=== PATIENT | female | born 1960 | race Caucasian/White ===

== ENCOUNTER 2018-01-10 12:56 | Emergency (ER) | payer BC, OTHER ==
[2018-01-10] MEDS ORDERED: Hydromorphone 1 mg/ml Ampule IM ONE (13:44)
[2018-01-10] MEDS ORDERED: Phenergan 25 MG INJ IM ONE (13:45)
[2018-01-10] MEDS ORDERED: DECADRON 10MG INJ. IM ONE (13:48)
[2018-01-10] MEDS ORDERED: MORPHINE SULFATE 4 MG INJ ONE (13:52)
[2018-01-10] MEDS ORDERED: MORPHINE SULFATE 4 MG INJ IM ONE (13:52)
[2018-01-10] MEDS ORDERED: DECADRON 10MG INJ. ONE (13:52)
[2018-01-10] MEDS ORDERED: Phenergan 25 MG INJ ONE (13:52)
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
[2018-01-10 14:40] VITALS: BP 149/94; PULSE 73
[2018-01-10 14:41] VITALS: O2SAT 96
== END 2018-01-10 14:40 | disposition home or self-care (01) ==
LOC: ED 12:56
DX: M54.2 Cervicalgia (principal); G89.29 Other chronic pain
CPT/HCPCS: 96372; 99284; J1100; J2270; J2550; L0120

== ENCOUNTER 2018-01-12 17:29 | Emergency (ER) | payer OTHER ==
[2018-01-12] MEDS ORDERED: Hydromorphone 1 mg/ml Ampule IV ONE (18:16)
[2018-01-12] MEDS ORDERED: Phenergan 25 MG INJ IM ONE (18:16)
[2018-01-12] MEDS ORDERED: Phenergan 25 MG INJ ONE (18:28)
[2018-01-12] MEDS ORDERED: DILAUDID 2 MG INJECTION ONE (18:29)
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
[2018-01-12 19:09] VITALS: O2SAT 97
[2018-01-12] MEDS ORDERED: Decadron 4 MG INJ IV ONE (19:14)
[2018-01-12] MEDS ORDERED: Decadron 4 MG INJ ONE (19:17)
[2018-01-12 20:07] VITALS: BP 132/70; PULSE 65
== END 2018-01-12 20:15 | disposition home or self-care (01) ==
LOC: ED 17:29
DX: M54.12 Radiculopathy, cervical region (principal); M54.2 Cervicalgia; M62.838 Other muscle spasm; M19.90 Unspecified osteoarthritis, unspecified site; F41.8 Other specified anxiety disorders; F17.200 Nicotine dependence, unspecified, uncomplicated
CPT/HCPCS: 36000; 96372; 96374; 96375; 99284; J1100; J1170; J2550

== ENCOUNTER 2022-04-16 09:59 | Day surgery (SDC) | payer MEDICARE ==
[2022-04-16] MEDS ORDERED: Sodium Chloride 0.9(Preservative Free) 10 ML IJ ONE (10:00)
[2022-04-16] MEDS ORDERED: Depo-Medrol 40 MG/ML IM ONE (10:00)
[2022-04-16] MEDS ORDERED: XYLOCAINE-MPF 1% 5ML SDV IJ ONE (10:00)
[2022-04-16] MEDS ORDERED: DIPRIVAN 200 MG/20 ML IV ONE ×2 (11:30→11:44)
[2022-04-16] MEDS ORDERED: Lactated Ringers 1,000 ML IV ONE (12:56)
--- NOTE | 2022-04-16 13:21 | XRAY ---
43 seconds fluoroscopy time in surgery for lumber JOSE.
--- NOTE | 2022-04-16 13:23 | XRAY ---
Indication: Lumbar JOSE. Intraoperative fluoroscopy provided for 43 seconds. 2 digital spot image submitted for interpretation demonstrates midline posterior needle tip projecting just posterior to lumbosacral junction interspace. Small amount of contrast was injected for needle tip placement. Correlate with intraoperative findings/report.
== END 2022-04-16 12:08 | disposition home or self-care (01) ==
LOC: SDC-PAIN 09:59
PROVIDERS: ATTEND Psychiatry & Neurology Pain Medicine
DX: M54.16 Radiculopathy, lumbar region (principal); Z79.899 Other long term (current) drug therapy
CPT/HCPCS: 62323; 72100; 77003; J1030; J2704; Q9966

== ENCOUNTER 2022-06-23 22:58 | Emergency (ER) | payer MEDICARE ==
--- NOTE | 2022-06-23 23:09 | ERPHSYRPT ---
- History of Present Illness Time Seen by Provider: 06/23/22 23:08 Historian: patient, family Exam Limitations: no limitations Physician History: This is an obese 62-year-old white female patient of Dr. Blanca who presents with right lower quadrant abdominal pain that began approximately 10 to 11 hours ago and worsened throughout the day. Patient had associated vomiting. Upon arrival to the emergency department her blood pressure was elevated to secondary to pain. Patient is only taking levothyroxine and Celebrex medication. She does see a pain specialist because of some bulging disks in her cervical spine. Patient has a history of irritable bowel syndrome, anxiety, depression and osteoarthritis. Patient is a current daily smoker of cigarettes. Timing/Duration: today, worse Quality: sharpness, stabbing Abdominal Pain Onset Location: RLQ Pain Radiation: no radiation Severity of Pain-Max: mild (To moderate) Severity of Pain-Current: moderate Modifying Factors: Improves With: vomiting Associated Symptoms: denies symptoms Previous symptoms: no prior history Allergies/Adverse Reactions: No Known Drug Allergies Allergy (Verified 01/10/18 13:13) Home Medications: Levothyroxine Sodium 50 Mcg [Synthroid 50 Mcg] 50 mcg PO DAILY 01/10/18 [History] Tramadol HCl/Acetaminophen [Tramadol-Acetaminophn 37.5-325] 1 ea TID 01/10/18 [History] Carisoprodol 350 mg [Soma 350 mg] 350 mg PO TID PRN PRN 01/12/18 [History] Hx Tetanus, Diphtheria Vaccination/Date Given: No Hx Influenza Vaccination/Date Given: Yes Hx Pneumococcal Vaccination/Date Given: No Travel Risk - International Travel Have you traveled outside of the country in past 3 weeks: No - Coronavirus Screening Are you exhibiting any of the following symptoms?: No Close contact with a COVID-19 positive Pt in past 14-21 Days: No - Review of Systems Constitutional: No Symptoms Eyes: No Symptoms Ears, Nose, & Throat: No Symptoms Respiratory: No Symptoms Cardiac: No Symptoms Abdominal/Gastrointestinal: Abdominal Pain, Vomiting Genitourinary Symptoms: No Symptoms Musculoskeletal: No Symptoms Skin: No Symptoms Neurological: No Symptoms Psychological: No Symptoms Endocrine: No Symptoms Hematologic/Lymphatic: No Symptoms Immunological/Allergic: No Symptoms All Other Systems: Reviewed and Negative - Past Medical History Pertinent Past Medical History: Yes Neurological History: No Pertinent History ENT History: No Pertinent History Cardiac History: No Pertinent History Respiratory History: No Pertinent History Endocrine Medical History: No Pertinent History, Hypothyroidism Musculoskeletal History: Osteoarthritis GI Medical History: Irritable Bowel History: No Pertinent History Psycho-Social History: Anxiety, Depression Female Reproductive Disorders: Other Other Medical History: CURRENT SMOKER, - Past Surgical History Past Surgical History: Yes Neuro Surgical History: No Pertinent History Cardiac: No Pertinent History Respiratory: No Pertinent History Gastrointestinal: No Pertinent History Genitourinary: No Pertinent History Musculoskeletal: No Pertinent History Female Surgical History: Hysterectomy, Lumpectomy, Tubal Ligation Other Surgical History: 2005 left lumpectomy/breast, - Social History Smoking Status: Current every day smoker How long have you smoked: 34yrs Exposure to second hand smoke: Yes Drug Use: none Patient Lives Alone: No - Nursing Vital Signs Nursing Vital Signs: Initial Vital Signs Temperature 96.8 F 06/23/22 23:16 Pulse Rate 91 H 06/23/22 23:16 Respiratory Rate 20 06/23/22 23:16 Blood Pressure 206/103 06/23/22 23:16 O2 Sat by Pulse Oximetry 96 06/23/22 23:16 Pain Scale Pain Intensity 4 - Physical Exam General Appearance: no apparent distress, alert, anxiety, obese Eye Exam: PERRL/EOMI, eyes nml inspection Ears, Nose, Throat Exam: normal ENT inspection, moist mucous membranes Neck Exam: normal inspection, non-tender, supple, full range of motion Respiratory Exam: normal breath sounds, lungs clear, airway intact, No chest tenderness, No respiratory distress Cardiovascular Exam: regular rate/rhythm, normal heart sounds, normal peripheral pulses Gastrointestinal/Abdomen Exam: soft, normal bowel sounds, tenderness (Right lower quadrant), guarding (Right lower quadrant) Pelvic Exam: not done Rectal Exam: not done Back Exam: normal inspection, normal range of motion, No CVA tenderness, No vertebral tenderness Extremity Exam: normal inspection, normal range of motion, pelvis stable Neurologic Exam: alert, oriented x 3, cooperative, 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, normal mood/affect, nml cerebellar function, nml station & gait, sensation nml Skin Exam: normal color, warm, dry Lymphatic Exam: No adenopathy SpO2 Interpretation: normal O2 Delivery: Room Air - Course Nursing assessment & vital signs reviewed: Yes EKG Interpreted by Me: RATE (79), Sinus Rhythm, NORMAL AXIS, NORMAL INTERVALS, Right Bundle Branch Block, NORMAL ST-T, Other (Acute ischemic changes) Ordered Tests: Active Orders 24 hr Category Date Time Status IV Insertion STAT Care 06/23/22 23:28 Active ABDOMEN AND PELVIS W/0 CONTRAS [CT] Stat Exams 06/23/22 23:28 Taken AMYLASE Stat Lab 06/23/22 23:35 Completed CBC W DIFF Stat Lab 06/23/22 23:35 Completed CMP Stat Lab 06/23/22 23:35 Completed CULTURE,URINE Stat Lab 06/23/22 23:42 Received LIPASE Stat Lab 06/23/22 23:35 Completed TROPONIN Q4H Lab 06/23/22 23:35 Completed TROPONIN Q4H Lab 06/24/22 03:30 Ordered TROPONIN Q4H Lab 06/24/22 07:30 Ordered UA W/RFX CULTURE Stat Lab 06/23/22 23:42 Completed Medication Summary Generic Name Dose Route Start Last Admin Trade Name Freq PRN Reason Stop Dose Admin Sodium Chloride 1,000 mls @ 999 mls/hr 06/23/22 23:35 06/23/22 23:37 Sodium Chloride 0.9% 1000 Ml IV 06/24/22 00:35 999 mls/hr .Q1H1M STA Administration Discontinued Medications Generic Name Dose Route Start Last Admin Trade Name Freq PRN Reason Stop Dose Admin Hydromorphone HCl 1 mg 06/23/22 23:28 06/23/22 23:37 Hydromorphone 1 Mg/1ml Inj 1 Mg/Ml Syringe IV 06/23/22 23:29 1 mg STAT ONE Administration Hydromorphone HCl Confirm 06/23/22 23:34 Hydromorphone 1 Mg/1ml Inj 1 Mg/Ml Syringe Administered 06/23/22 23:35 Dose 1 mg .ROUTE .STK-MED ONE Sodium Chloride Confirm 06/23/22 23:34 Sodium Chloride 0.9% 1000 Ml Administered 06/23/22 23:35 Dose 1,000 mls @ ud .ROUTE .STK-MED ONE Prochlorperazine Edisylate 5 mg 06/23/22 23:29 06/23/22 23:37 Prochlorperazine Edisylate 10 Mg/2 Ml Vial IV 06/23/22 23:30 5 mg STAT ONE Administration Prochlorperazine Edisylate Confirm 06/23/22 23:34 Prochlorperazine Edisylate 10 Mg/2 Ml Vial Administered 06/23/22 23:35 Dose 10 mg .ROUTE .STK-MED ONE Lab/Rad Data: Laboratory Result Diagrams 06/23/22 23:35 06/23/22 23:35 Laboratory Results 06/23/22 06/23/22 06/23/22 Range/Units 23:42 23:35 23:35 WBC (4.0-10.5) x10^3/uL RBC (4.1-5.4) x10^6/uL Hgb (12.0-16.0) g/dL Hct (35-47) % MCV (78-100) fL MCH (26-32) pg MCHC (32-36) g/dL RDW (11.5-14.0) % Plt Count (150-450) x10^3/uL MPV (7.5-11.0) fL Gran % (36.0-66.0) % Immature Gran % (Auto) (0.00-0.4) % Nucleat RBC Rel Count (0.00-0.1) % Eos # (Auto) (0-0.5) x10^3/uL Immature Gran # (Auto) (0.00-0.03) x10^3u/L Absolute Lymphs (auto) (1.0-4.6) x10^3/uL Absolute Monos (auto) (0.0-1.3) x10^3/uL Absolute Nucleated RBC (0.00-0.01) x10^3u/L Lymphocytes % (24.0-44.0) % Monocytes % (0.0-12.0) % Eosinophils % (0.00-5.0) % Basophils % (0.0-0.4) % Absolute Granulocytes (1.4-6.9) x10^3/uL Basophils # (0-0.4) x10^3/uL Sodium 138 (137-145) mmol/L Potassium 4.2 (3.5-5.1) mmol/L Chloride 107 (98-107) mmol/L Carbon Dioxide 19 L (22-30) mmol/L Anion Gap 16.2 H (5-15) MEQ/L BUN 29 H (7-17) mg/dL Creatinine 1.51 H (0.52-1.04) mg/dL Estimated GFR 37.0 ML/MIN Glucose 161 H (74-106) mg/dL Calcium 10.1 (8.4-10.2) mg/dL Total Bilirubin 0.50 (0.2-1.3) mg/dL AST 40 H (14-36) U/L ALT 43 H (0-35) U/L Alkaline Phosphatase 90 (38-126) U/L Troponin I < 0.012 (0.000-0.034) ng/mL Serum Total Protein 7.8 (6.3-8.2) g/dL Albumin 4.8 (3.5-5.0) g/dL Amylase 104 (30-110) U/L Lipase 130 (23-300) U/L Urinalys Dipstick Clnc MAIN LAB Urine Color YELLOW (YELLOW) Urine Appearance CLOUDY (CLEAR) Urine pH 7.0 (5-6) Ur Specific [place] 1.025 (1.005-1.025) POC Urine Protein Conf NEGATIVE (Negative) Urine Ketones NEGATIVE (NEGATIVE) Urine Nitrite NEGATIVE (NEGATIVE) Urine Bilirubin NEGATIVE (NEGATIVE) Urine Urobilinogen 0.2 (0-1) mg/dL Urine Leukocytes TRACE (NEGATIVE) Urine WBC (Auto) 3-5 (0-5) /HPF Urine RBC (Auto) 3-5 (0-2) /HPF U Epithel Cells (Auto) RARE (FEW) /HPF Urine Bacteria (Auto) RARE (NEGATIVE) /HPF Urine RBC TRACE-INTACT (0-5) De/ul Urine Mucus (Auto) SLIGHT (NEGATIVE) /HPF Ur Culture Indicated? YES Urine Glucose NEGATIVE (NEGATIVE) mg/dL 06/23/22 Range/Units 23:35 WBC 11.8 H (4.0-10.5) x10^3/uL RBC 4.52 (4.1-5.4) x10^6/uL Hgb 14.3 (12.0-16.0) g/dL Hct 44.2 (35-47) % MCV 97.8 (78-100) fL MCH 31.6 (26-32) pg MCHC 32.4 (32-36) g/dL RDW 12.2 (11.5-14.0) % Plt Count 312 (150-450) x10^3/uL MPV 9.9 (7.5-11.0) fL Gran % 76.8 H (36.0-66.0) % Immature Gran % (Auto) 0.3 (0.00-0.4) % Nucleat RBC Rel Count 0.0 (0.00-0.1) % Eos # (Auto) 0.16 (0-0.5) x10^3/uL Immature Gran # (Auto) 0.04 H (0.00-0.03) x10^3u/L Absolute Lymphs (auto) 1.83 (1.0-4.6) x10^3/uL Absolute Monos (auto) 0.62 (0.0-1.3) x10^3/uL Absolute Nucleated RBC 0.00 (0.00-0.01) x10^3u/L Lymphocytes % 15.5 L (24.0-44.0) % Monocytes % 5.3 (0.0-12.0) % Eosinophils % 1.4 (0.00-5.0) % Basophils % 0.7 (0.0-0.4) % Absolute Granulocytes 9.06 H (1.4-6.9) x10^3/uL Basophils # 0.08 (0-0.4) x10^3/uL Sodium (137-145) mmol/L Potassium (3.5-5.1) mmol/L Chloride (98-107) mmol/L Carbon Dioxide (22-30) mmol/L Anion Gap (5-15) MEQ/L BUN (7-17) mg/dL Creatinine (0.52-1.04) mg/dL Estimated GFR ML/MIN Glucose (74-106) mg/dL Calcium (8.4-10.2) mg/dL Total Bilirubin (0.2-1.3) mg/dL AST (14-36) U/L ALT (0-35) U/L Alkaline Phosphatase (38-126) U/L Troponin I (0.000-0.034) ng/mL Serum Total Protein (6.3-8.2) g/dL Albumin (3.5-5.0) g/dL Amylase (30-110) U/L Lipase (23-300) U/L Urinalys Dipstick Clnc Urine Color (YELLOW) Urine Appearance (CLEAR) Urine pH (5-6) Ur Specific [place] (1.005-1.025) POC Urine Protein Conf (Negative) Urine Ketones (NEGATIVE) Urine Nitrite (NEGATIVE) Urine Bilirubin (NEGATIVE) Urine Urobilinogen (0-1) mg/dL Urine Leukocytes (NEGATIVE) Urine WBC (Auto) (0-5) /HPF Urine RBC (Auto) (0-2) /HPF U Epithel Cells (Auto) (FEW) /HPF Urine Bacteria (Auto) (NEGATIVE) /HPF Urine RBC (0-5) De/ul Urine Mucus (Auto) (NEGATIVE) /HPF Ur Culture Indicated? Urine Glucose (NEGATIVE) mg/dL - Progress Progress: improved Progress Note: 06/24/22 00:33 CAT scan of the abdomen pelvis without contrast shows a 3 mm ureteral stone at the ureteralvesicular junction Counseled pt/family regarding: lab results, diagnosis, need for follow-up, rad results - Departure Departure Disposition: Home Clinical Impression: Right ureteral calculus Condition: Stable Critical Care Time: No Referrals: CHINA BLANCA MD [Primary Care Provider] - Follow up/PCP as directed Additional Instructions: Drink plenty of fluids. Add ibuprofen 600 mg orally 3 times a day with food for the next 5 days to help control pain. If pain persists beyond 48 hours follow- up with your primary care physician or urologist for further evaluation and management. Prescriptions: Hydrocodone/APAP 5/325 [[place] 5/325 mg] 1 each PO Q8H PRN PRN #6 tablet MDD 3 PRN Reason: Pain Tamsulosin HCl 0.4 mg [Flomax 0.4 MG] 0.4 mg PO DAILY #7 cap
[2022-06-23] MEDS ORDERED: Hydromorphone 1 mg/ml Injection IV ONE (23:28)
[2022-06-23] MEDS ORDERED: Compazine 10 MG/2 ML IV ONE (23:29)
[2022-06-23] MEDS ORDERED: Hydromorphone 1 mg/ml Injection ONE (23:34)
[2022-06-23] MEDS ORDERED: Compazine 10 MG/2 ML ONE (23:34)
[2022-06-23] MEDS ORDERED: Sodium Chloride 0.9% 1000 ML 1,000 ML ONE (23:34)
[2022-06-23] MEDS ORDERED: Sodium Chloride 0.9% 1000 ML 1,000 ML IV STA (23:35)
[2022-06-23 23:44] LABS: Absolute Neutrophil Ct (ANC) 9.06 x10^3/uL (1.4-6.9); Basophil (Absolute #) 0.08 x10^3/uL (0-0.4); Eosinophil % 1.4 % (0.00-5.0); Eosinophil (Absolute #) 0.16 x10^3/uL (0-0.5); Hematocrit 44.2 % (35-47); Hemoglobin 14.3 g/dL (12.0-16.0); Lymphocyte (Absolute #) 1.83 x10^3/uL (1.0-4.6); Lymphocytes % 15.5 % (24.0-44.0); Mean Cell Volume 97.8 fL (78-100); Mean Corpuscular Hemoglobin 31.6 pg (26-32); Mean Corpuscular Hgb Concent. 32.4 g/dL (32-36); Mean Platelet Volume 9.9 fL (7.5-11.0); Monocyte (Absolute #) 0.62 x10^3/uL (0.0-1.3); Monocytes % 5.3 % (0.0-12.0); Neutrophil % 76.8 % (36.0-66.0); Platelet Count 312 x10^3/uL (150-450); Red Blood Count 4.52 x10^6/uL (4.1-5.4); Red Cell Distribution Width 12.2 % (11.5-14.0); White Blood Count 11.8 x10^3/uL (4.0-10.5)
[2022-06-23 23:47] LABS: Bacteria RARE /HPF (NEGATIVE); Epithelial Cells RARE /HPF (FEW); Mucus SLIGHT /HPF (NEGATIVE)
[2022-06-23 23:49] LABS: Appearance CLOUDY (CLEAR); Bilirubin NEGATIVE (NEGATIVE); Glucose NEGATIVE (NEGATIVE)
[2022-06-23 23:50] LABS: Ketones NEGATIVE (NEGATIVE); Nitrite NEGATIVE (NEGATIVE); Protein,Urine Dip NEGATIVE (Negative); RBC TRACE-INTACT Ery/ul (0-5); Specific Gravity 1.025 (1.005-1.025); Urine Cultured Indicated? YES; Urobilinogen 0.2 mg/dL (0-1)
[2022-06-23 23:51] LABS: Dipstick done @ ? MAIN LAB
[2022-06-23 23:56] LABS: ALBUMIN 4.8 g/dL (3.5-5.0); ANION GAP 16.2 MEQ/L (5-15); BILIRUBIN,TOTAL 0.5 mg/dL (0.2-1.3); Calcium 10.1 mg/dL (8.4-10.2); Creatinine 1 1.51 mg/dL (0.52-1.04); Potassium 4.2 mmol/L (3.5-5.1); Total Protein 7.8 g/dL (6.3-8.2)
[2022-06-24 00:17] VITALS: O2SAT 93
[2022-06-24] MEDS ORDERED: TORAdol 30 mg Injection IV ONE (00:37)
[2022-06-24] MEDS ORDERED: NORCO 5/325 MG PO ONE (00:38)
[2022-06-24] MEDS ORDERED: Flomax 0.4 MG PO ONE (00:38)
[2022-06-24] MEDS ORDERED: Flomax 0.4 MG ONE (00:40)
[2022-06-24] MEDS ORDERED: TORAdol 30 mg Injection ONE (00:40)
[2022-06-24] MEDS ORDERED: NORCO 5/325 MG ONE (00:41)
[2022-06-24 01:06] VITALS: BP 130/74; PULSE 61
--- NOTE | 2022-06-24 08:48 | XRAY ---
Indication: Right lower quadrant pain. Nausea, vomiting, diarrhea. Multiple contiguous axial images obtained through the abdomen and pelvis without contrast. Comparison: None Lung bases demonstrates mild dependent atelectasis. Heart not enlarged. Small hiatal hernia. Noncontrasted stomach and bowel loops nonobstructed. Appendix not visualized. Mild sigmoid diverticulosis without diverticulitis. Previous hysterectomy. 2-3 mm right UVJ calculus with mild proximal hydroureter, mild hydronephrosis, and mild renal edema. No free fluid/air. Remaining liver, gallbladder, pancreas, spleen, adrenal glands, kidneys, ureters, and bladder are unremarkable for noncontrast exam. Mild aortic calcifications without AAA. Osseous structures intact with mild/moderate degenerative changes throughout the spine and both hips. No ventral or inguinal hernias. Impression: 1. 2-3 mm right UVJ calculus producing obstructive uropathy as detailed. 2. Incidental small hiatal hernia, colonic diverticulosis, and chronic bony findings. 3. Remaining CT abdomen/pelvis without contrast exam is negative. Comment: Preliminary interpretation made by [facility]. No critical discrepancy.
== END 2022-06-24 01:16 ==
LOC: ED 22:58
DX: N13.2 Hydronephrosis with renal and ureteral calculous obstruction (principal); R10.31 Right lower quadrant pain; R11.10 Vomiting, unspecified; R03.0 Elevated blood-pressure reading, without diagnosis of hypertension; Z72.0 Tobacco use; Z79.891 Long term (current) use of opiate analgesic; Z79.899 Other long term (current) drug therapy
CPT/HCPCS: 36000; 36415; 74176; 80053; 81015; 82150; 83690; 84484; 85025; 87086; 96360; 96374; 96375; 99284; J1170; J1885; A9270-GY

== ENCOUNTER 2025-09-28 08:46 | Day surgery (SDC) | payer MEDICARE ==
--- NOTE | 2025-09-28 07:21 | HP ---
HISTORY AND PHYSICAL HISTORY OF PRESENT ILLNESS: The patient is a 65-year-old female who presents for screening colonoscopy. Last scope was 10 years ago. She did not have any polyps. PAST MEDICAL HISTORY: Thyroid disease, arthritis, uterine cancer. HOME MEDICATIONS: Synthroid, Vivelle, Singulair, Celebrex, topiramate, Flonase. ALLERGIES: Negative. PAST SURGICAL HISTORY: Tubal ligation, lumpectomy, hysterectomy, A and P repair. SOCIAL HISTORY: Negative. FAMILY HISTORY: Heart disease. REVIEW OF SYSTEMS: CONSTITUTIONAL: Denies fever or chills. CHEST: Denies shortness of breath. CARDIOVASCULAR: Denies chest pain. ABDOMEN: Denies abdominal pain. PHYSICAL EXAMINATION: GENERAL: No acute distress. CARDIOVASCULAR: Regular rate and rhythm. RESPIRATORY: Nonlabored. No shortness of breath. ABDOMEN: Soft. IMPRESSION: Screening. PLAN: Colonoscopy with Dr. Lizandro Goncalves. This report was dictated for Dr. Lizandro Goncalves by Adriana Witt NP.
[2025-09-28] MEDS ORDERED: Lactated Ringers 1,000 ML IV ONE (09:21)
[2025-09-28 09:29] VITALS: RESP 16
[2025-09-28] MEDS: Lactated Ringers 1,000 ML IV SCH (09:30)
[2025-09-28] MEDS ORDERED: propofoL IV ONE ×2 (12:26→12:45)
[2025-09-28] MEDS ORDERED: Versed 2 MG/2 ML Injection ONE (12:26)
--- NOTE | 2025-09-28 14:02 | XRAY ---
Indication: Pain following colonoscopy. Comparison: None 2 view abdomen nonacute nonobstructed with mild air distended colon throughout consistent with recent colonoscopy. No free air. Solid organs unremarkable. Osseous structures intact with mild multilevel lumbar degenerative spondylosis.
[2025-09-28 14:12] VITALS: PULSE 64
[2025-09-28 14:22] VITALS: BP 143/87; TEMP 98.6; O2SAT 98
--- NOTE | 2025-09-29 14:41 | OP ---
SURGERY DATE/TIME: 09/28/2025 [id number] PREOPERATIVE DIAGNOSIS: Screening. POSTOPERATIVE DIAGNOSIS: Exam limited to 40 cm secondary to angulation. She does have moderate sigmoid diverticulosis. PROCEDURE: Exam limited to 40 cm. SURGEON: Lizandro Goncalves MD. ANESTHETIC: General. COMPLICATIONS: None. CONDITION: Stable. DESCRIPTION OF PROCEDURE AND FINDINGS: Patient was taken to endoscopy. Anal digital examination satisfactory. Scope introduced. Scope advanced to 40. It was advanced 3 different times with 3 different positions. Despite this, there was angulation left and then I presume probably up, and there was a diverticulum right there. Scope kept wanting to slide toward the diverticulum. Despite repositioning and different positions of the scope, it just would not turn left and then up satisfactorily. We will get a barium enema as an outpatient. She had some discomfort in the recovery room, so a flat film was taken. Significant amount of gas in the colon, I did not see any free air, and she had a bed dyson episode and she felt quite a bit better. On abdominal examination, she has no peritoneal signs. She is just a little diffusely distended and a little tender in the center. We will make sure her pain clears before she leaves.
== END 2025-09-28 14:38 | disposition home or self-care (01) ==
LOC: SDC 08:46
PROVIDERS: ATTEND Surgery
DX: Z12.11 Encounter for screening for malignant neoplasm of colon (principal); Z85.42 Personal history of malignant neoplasm of other parts of uterus; K57.30 Diverticulosis of large intestine without perforation or abscess without bleeding